=== PATIENT | male | born 1985 | race Caucasian/White ===

== ENCOUNTER 2017-01-07 15:07 | Emergency (ER) | payer MEDICAID ==
[~2017-01-07] VITALS: Ht 177.8 cm; Wt 86.2 kg
[2017-01-07] MEDS ORDERED: TDAP DIPH,PERTUSS,TET VAC/PF 0.5 ML DISP.SYRIN IM ONE ×2 (15:30→15:37)
--- NOTE | 2017-01-07 15:37 | NUR ---
PT WAS EVALUATED BY DR EMERSON. PT'S WOUND WAS CLEANED WITH NS 0.9%. PT WAS D/C TO HOME. D/C INSTRUCTIONS GIVEN TO THE PT.
[2017-01-07 15:38] VITALS: BP 139/71
== END 2017-01-07 15:39 | disposition home or self-care (01) ==
LOC: ER 15:10
DX: S91.332A Puncture wound without foreign body, left foot, initial encounter (principal); Z88.1 Allergy status to other antibiotic agents; X58.XXXA Exposure to other specified factors, initial encounter; Y93.89 Activity, other specified; Y92.9 Unspecified place or not applicable; Y99.9 Unspecified external cause status
CPT/HCPCS: 90715; A4663

== ENCOUNTER 2018-10-11 22:02 | Emergency (ER) | payer MEDICAID ==
[~2018-10-11] VITALS: Ht 175.3 cm; Wt 74.8 kg
--- NOTE | 2018-10-11 22:20 | NUR ---
Patient ambulated with stable gait. AAOx4. Speech is clear, speaks in complete sentences. No neuro deficits. Patient came in with RHAND swelling s/p skateboarding accident x 1 day. Respiratory even and unlabored. No GI/ distress. Patient in bed at lowest position, side rails up x2, call light within reach. Fall precautions implemented per protocol.
[2018-10-11] MEDS ORDERED: SULFAMETH/TRIMETH 800/160 MG TABLET ONE (22:39)
[2018-10-11] MEDS ORDERED: SULFAMETH/TRIMETH 800/160 MG TABLET PO ONE (22:45)
--- NOTE | 2018-10-11 22:53 | NUR ---
Patient discharged to home in stable conditon. Written and verbal after care instructions given. Patient verbalizes understanding of instructions. Patient ambulated with stable gait.
[2018-10-11 22:54] VITALS: BP 110/80
== END 2018-10-11 22:54 | disposition home or self-care (01) ==
LOC: ER 22:02
DX: S61.216A Laceration without foreign body of right little finger without damage to nail, initial encounter (principal); L08.9 Local infection of the skin and subcutaneous tissue, unspecified; Z88.1 Allergy status to other antibiotic agents; V00.131A Fall from skateboard, initial encounter; Y93.51 Activity, roller skating (inline) and skateboarding; Y92.89 Other specified places as the place of occurrence of the external cause; Y99.8 Other external cause status
CPT/HCPCS: 73130; A4663

== ENCOUNTER 2019-01-18 00:35 | Emergency (ER) | payer MEDICAID ==
[~2019-01-18] VITALS: Ht 177.8 cm; Wt 74.8 kg
[2019-01-18] MEDS ORDERED: HYDROCODONE/APAP 5-325MG TABLET ONE (00:59)
--- NOTE | 2019-01-18 00:59 | NUR ---
Patient discharged to home in stable conditon. Written and verbal after care instructions given. Patient verbalizes understanding of instructions. Pt ambulated out of ER in stable gait. No acute distress noted.
[2019-01-18 01:00] VITALS: BP 141/87
[2019-01-18] MEDS ORDERED: HYDROCODONE/APAP 5-325MG TABLET PO ONE (01:00)
== END 2019-01-18 01:00 | disposition home or self-care (01) ==
LOC: ER 00:39
DX: S93.401A Sprain of unspecified ligament of right ankle, initial encounter (principal); S90.811A Abrasion, right foot, initial encounter; H92.03 Otalgia, bilateral; H57.89 Other specified disorders of eye and adnexa; Z76.5 Malingerer [conscious simulation]; Z71.6 Tobacco abuse counseling; F17.290 Nicotine dependence, other tobacco product, uncomplicated; Z88.1 Allergy status to other antibiotic agents; X50.1XXA Overexertion from prolonged static or awkward postures, initial encounter; Y93.89 Activity, other specified; Y92.89 Other specified places as the place of occurrence of the external cause; Y99.8 Other external cause status
CPT/HCPCS: A4663